=== PATIENT | male | born 1980 | race Hispanic/Latino ===

== ENCOUNTER → 2020-10-13 15:27 | Outpatient (CLI) | payer OTHER, SELFPAY ==
--- NOTE | 2020-10-13 | DI.RAD.S_ITS ---
PROCEDURE: XR LUMBAR SPINE 2-3V INDICATIONS: Lumbar Strain TECHNIQUE: 3 views of the lumbar spine were acquired. COMPARISON: None. FINDINGS: Bones: Straightening of the normal lordotic curvature. No fracture. Moderate narrowing of the L5-S1 disc space. There is mild narrowing of the L1-L2 disc space. Multilevel degenerative endplate sclerosis and spurring. Diffuse facet arthropathy. Soft tissues: Overlying bowel gas pattern is normal. No suspicious soft tissue calcifications. IMPRESSION: Straightening of the normal lordotic curvature. Spondylosis and facet arthropathy as above Dictated by: Karan Vazquez M.D. on 10/13/2020 at 16:02 Approved by: Karan Vazquez M.D. on 10/13/2020 at 16:03
== END ==
PROVIDERS: PCP Nurse Practitioner Family; Referring Provider Nurse Practitioner Family; Visit Provider Nurse Practitioner Family
DX: S39.012A Strain of muscle, fascia and tendon of lower back, initial encounter (principal); M47.816 Spondylosis without myelopathy or radiculopathy, lumbar region
CPT/HCPCS: 72100

== ENCOUNTER → 2022-11-21 15:59 | Outpatient (CLI) | payer OTHER, MEDICAID, SELFPAY ==
--- NOTE | 2022-11-21 16:19 | DI.MRI.S_ITS ---
PROCEDURE: MR LUMBAR SPINE WO CON INDICATIONS: Radiculopathy, lumbar region TECHNIQUE: Noncontrast sagittal T1 spin echo and T2 fast echo, sagittal STIR, and T2 fast spin echo through the lumbar spine. In cases with scoliosis, additional coronal T2 fast spin echo may be performed. COMPARISON: [facility], MR, MR LUMBAR SPINE WITHOUT CONTRAST, 01/06/2021, 19:13. [facility], CR, XR LUMBAR SPINE WITH OBLIQUES PLUS FLEXION EXTENSION, 09/19/2022, 17:10. FINDINGS: Image quality: Excellent. Alignment and Curvature: 5 lumbar type vertebral bodies are present by plain film. There is loss of normal lumbar lordosis. Bone Marrow: Marrow is of normal overall signal. No acute vertebral body compression fractures. There is mild reactive signal within the endplates adjacent to the L5-S1 intervertebral disc. Bilateral L5-S1 pars interarticularis defects are present Spinal Cord: Conus medullaris terminates at the upper L2 level. Visualized cord demonstrates normal signal and size. Paraspinous Soft Tissues: No paravertebral masses. T12-L1: Normal appearance. L1-L2: Normal appearance. L2-L3: Normal appearance. L3-L4: Mild diffuse disc bulge with small superimposed broad-based right posterolateral protrusion. Mild epidural lipomatosis. Mild facet and ligamentum flavum hypertrophy. Mild canal stenosis. Mild right greater than left foraminal stenosis. No significant change. L4-L5: Mild facet and ligamentum flavum hypertrophy. Mild epidural lipomatosis. Mild diffuse disc bulge. Mild canal stenosis. Moderate subarticular foraminal stenosis bilaterally. No significant change. L5-S1: Mild disc desiccation and diffuse disc bulge. Mild facet and ligamentum flavum hypertrophy. Mild epidural lipomatosis. Moderate canal stenosis. Severe bilateral foraminal stenosis with bilateral L5 nerve root compression, increased on the right. IMPRESSION: 1. Multilevel degenerative disc and facet disease, as well as ligamentum flavum hypertrophy and epidural lipomatosis. 2. Multilevel canal stenoses, worst at L5-S1 where there is moderate canal stenosis. 3. Multilevel foraminal stenoses, worst at L5-S1 where there is associated intraforaminal nerve root compression. Recommend correlation with clinical symptoms to ascertain relevance of this finding. 4. Bilateral L5-S1 pars interarticularis defects. Dictated by: Wilberto Diaz M.D. on 11/22/2022 at 8:59 Approved by: Wilberto Diaz M.D. on 11/22/2022 at 9:02
== END ==
PROVIDERS: PCP Nurse Practitioner Family; Referring Provider Family Medicine; Visit Provider Family Medicine
DX: M47.16 Other spondylosis with myelopathy, lumbar region (principal); M51.16 Intervertebral disc disorders with radiculopathy, lumbar region; M51.17 Intervertebral disc disorders with radiculopathy, lumbosacral region; M43.10 Spondylolisthesis, site unspecified; M48.07 Spinal stenosis, lumbosacral region; M48.061 Spinal stenosis, lumbar region without neurogenic claudication
CPT/HCPCS: 72148

== ENCOUNTER → 2024-06-09 11:21 | Outpatient (CLI) | payer OTHER, SELFPAY ==
--- NOTE | 2024-06-09 11:22 | DI.MRI.S_ITS ---
PROCEDURE: MR LUMBAR SPINE WO CON INDICATIONS: SPONDYLOSIS W MYELO,LUMBAR REGION TECHNIQUE: Noncontrast sagittal T1 spin echo and T2 fast echo, sagittal STIR, and T2 fast spin echo through the lumbar spine. In cases with scoliosis, additional coronal T2 fast spin echo may be performed. COMPARISON: [facility], , MR LUMBAR SPINE WO CON, 11/21/2022, 16:11. FINDINGS: Image quality: Excellent Straightening of the lumbar spine. Grade 1 anterolisthesis of L5 on S1 with bilateral pars defect. Marrow signal is normal for age. Vertebral body heights are well maintained. Mild disc bulge at L5-S1. Conus terminates at the level of L1-2, and is unremarkable. Right neural foraminal stenosis: Mild at L4-5. Severe at L5-S1. Left neural foraminal stenosis. Mild at L3-4 and L4-5. Severe at L5-S1. Axial images: T12-L1: Unremarkable L1-2: Unremarkable L3-4: Mild bilateral facet arthropathy. No central canal stenosis. L4-5: Moderate right, mild left facet arthropathy. No central canal stenosis. L5-S1: Posterior disc uncovering. Moderate right, mild left facet arthropathy with fluid within bilateral facet. Mild central canal stenosis. Sacrum: Visualized sacrum is unremarkable. No abdominal aortic aneurysm. IMPRESSION: 1. Multilevel degenerative changes of the lumbar spine, most pronounced at L5-S1, where there is severe bilateral neural foraminal stenosis, progressed from prior exam. Mild central canal stenosis at L5-S1, grossly unchanged. 2. Grade 1 anterolisthesis of L5-S1 with bilateral pars defect. Dictated by: Naida Goss M.D. on 06/09/2024 at 17:54 Approved by: Naida Goss M.D. on 06/09/2024 at 18:06
== END ==
PROVIDERS: PCP Family Medicine; Referring Provider Family Medicine; Visit Provider Family Medicine
DX: S39.012D Strain of muscle, fascia and tendon of lower back, subsequent encounter (principal); M43.16 Spondylolisthesis, lumbar region; M47.16 Other spondylosis with myelopathy, lumbar region; M47.26 Other spondylosis with radiculopathy, lumbar region; M48.061 Spinal stenosis, lumbar region without neurogenic claudication; M48.07 Spinal stenosis, lumbosacral region
CPT/HCPCS: 72148

== ENCOUNTER → 2024-12-21 15:13 | Outpatient (CLI) | payer OTHER, SELFPAY ==
--- NOTE | 2024-12-21 15:16 | DI.RAD.S_ITS ---
PROCEDURE: XR LUMBAR SPINE MIN 4V INDICATIONS: Arthrodesis status TECHNIQUE: 5 views of the lumbar spine acquired, including flexion and extension views. COMPARISON: , , XR LUMBAR SPINE 2-3V, 10/13/2020, 15:40. FINDINGS: Lumbar spine curvature and alignment: Normal. Bones: There are no osseous abnormalities. Disc spaces: L5-S1 anterior/posterior fusion provided by interbody spacer, pedicle screws short interbody struts appreciated. No postsurgical complication-stability between flexion extension Soft tissues: No soft tissue swelling, calcification or mass. IMPRESSION: L5-S1 anterior/posterior fusion no complication Dictated by: Cristian Morocho M.D. on 12/25/2024 at 11:58 Approved by: Cristian Morocho M.D. on 12/25/2024 at 11:59
== END ==
LOC: RAD 15:14
PROVIDERS: PCP Family Medicine; Referring Provider Nurse Practitioner; Visit Provider Nurse Practitioner
DX: Z98.1 Arthrodesis status (principal); Z09 Encounter for follow-up examination after completed treatment for conditions other than malignant neoplasm
CPT/HCPCS: 72110